=== PATIENT | female | born 1970 | race African-American/Black ===

== ENCOUNTER 2018-10-25 06:19 | Emergency (ER) | payer MEDICAID, MEDICARE, OTHER ==
[~2018-10-25] VITALS: Ht 165.1 cm; Wt 79.9 kg
--- NOTE | 2018-10-25 06:21 | NUR ---
NIL X 1 WHEN CALLED FOR TRIAGE.
--- NOTE | 2018-10-25 06:45 | NUR ---
PT TO ROOM. PT HAS MULTIPLE COMPLAINTS. PT C/O HEADACHE FOR TWO DAYS 10/10 PAIN. PT ALSO C/O SHARP LEFT SIDED CHEST PAIN WHICH WOKE HER FROM HER SLEEP AT 0300 THIS MORNING. PT ALSO REPORTS NAUSEA AND EPIGASTRIC PAIN. PT A&OX4. PT S/O AT BEDSIDE.
[2018-10-25] MEDS ORDERED: ONDANSETRON 2MG/ML, 2ML IVPush ONE (07:00)
[2018-10-25] MEDS ORDERED: SODIUM CHLORIDE FLUSH 10ML SYR IVF ONE (07:00)
[2018-10-25] MEDS ORDERED: ASPIRIN 81 MG TABLET CHEW PO ONE (07:00)
[2018-10-25] MEDS ORDERED: MORPHINE SULFATE 4 MG/ML, 1ML IVPush PRN (07:00)
--- NOTE | 2018-10-25 07:00 | NUR ---
REPORT GIVEN TO VERONIKA BURDEN
[2018-10-25] MEDS ORDERED: AMLO10TA8 PO (07:03)
[2018-10-25] MEDS ORDERED: LISI-170 PO (07:03)
[2018-10-25] MEDS ORDERED: MORPHINE SULFATE 4 MG/ML, 1ML ONE (07:03)
[2018-10-25] MEDS ORDERED: HYDR25TA6 PO (07:03)
[2018-10-25] MEDS ORDERED: ASPIRIN 81 MG TABLET CHEW ONE (07:03)
[2018-10-25] MEDS ORDERED: ONDANSETRON 2MG/ML, 2ML ONE (07:03)
[2018-10-25] MEDS ORDERED: VERA120T5 PO (07:03)
[2018-10-25] MEDS ORDERED: METO-290 PO (07:03)
[2018-10-25 07:20] LABS: MEAN CORPUSCULAR HEMOGLOBIN 30.9 pg (27.0-34.8); MEAN CORPUSCULAR HGB CONC 32.8 g/dL (32.4-35.8); MEAN CORPUSCULAR VOLUME 94.1 fL (80-100); MEAN PLATELET VOLUME 7.6 fL (7.4-10.4); PLATELET COUNT 365 x10^3/uL (130-400); RED BLOOD COUNT 4.51 x10^6/uL (3.82-5.3); RED CELL DISTRIBUTION WIDTH 16.3 % (9.6-15.2)
--- NOTE | 2018-10-25 07:26 | NUR ---
ASSUMED CARE OF PT. PT MEDICATED FOR PAIN AND NAUSEA. PT ON A CHEMICAL ENGINEER AND SERIAL VS. NAD.
[2018-10-25 07:33] LABS: ANION GAP 5 mmol/L (5-15); CALCIUM 8.9 mg/dL (8.5-10.1); CHLORIDE 106 mmol/L (98-107); CREATININE 0.95 mg/dL (0.55-1.02)
[2018-10-25 07:38] LABS: TROPONIN I < 0.015 ng/mL (0.000-0.045)
[2018-10-25 07:44] LABS: BASOPHILS # (AUTO) 0.03 x10^3/uL (0-0.1); BASOPHILS % (AUTO) 0 % (0-1); EOSINOPHILS # (AUTO) 0.02 x10^3/uL (0-0.4); EOSINOPHILS % (AUTO) 0 % (1-7); LYMPHOCYTES # (AUTO) 0.71 x10^3/uL (1-3.4); LYMPHOCYTES % (AUTO) 5 % (22-44); MD SCAN; MONOCYTES # (AUTO) 0.24 x10^3/uL (0.2-0.8); MONOCYTES % (AUTO) 2 % (2-9); NEUTROPHILS # (AUTO) 12.58 x10^3/uL (1.8-6.8); NEUTROPHILS % (AUTO) 93 % (42-75)
--- NOTE | 2018-10-25 08:16 | NUR ---
PT DENIES ANY NEEDS AT THIS TIME. SO AT BEDSIDE. PT AND SO WATCHING TV AND TALKING. NAD.
[2018-10-25] MEDS ORDERED: KETOROLAC 30 MG/1 ML ONE (08:23)
[2018-10-25] MEDS ORDERED: KETOROLAC 30 MG/1 ML IVPush ONE (08:30)
--- NOTE | 2018-10-25 08:33 | NUR ---
ROUNDED AGAIN, DISCUSSED POC WITH PT. URINE COLLECTED. PT DRINKING WATER.
--- NOTE | 2018-10-25 08:34 | NUR ---
PT MEDICATED FOR PAIN.
[2018-10-25 09:00] LABS: MICROSCOPIC INDICATED
--- NOTE | 2018-10-25 09:17 | NUR ---
Patient is resting comfortably in bed. Vital Signs within normal limits.
[2018-10-25] MEDS ORDERED: CEFTRIAXONE PMX 1GM/50ML 50 ML IV ONE (09:30)
--- NOTE | 2018-10-25 09:33 | NUR ---
PT OUT OF ROOM FOR IMAGING.
[2018-10-25] MEDS ORDERED: CEFTRIAXONE PMX 1GM/50ML 50 ML ONE (09:43)
[2018-10-25 09:58] VITALS: BP 167/112
--- NOTE | 2018-10-25 09:59 | NUR ---
PT STATES SHE STILL HAS PAIN. NOTIFIED. PHYLLIS BERNAL. VSS.
[2018-10-25] MEDS ORDERED: HYDROcodone/APAP 5/325 TABLET ONE (10:18)
[2018-10-25] MEDS ORDERED: HYDROcodone/APAP 5/325 TABLET PO ONE (10:30)
--- NOTE | 2018-10-25 10:58 | NUR ---
PT DISCHARGED WITH DISCHARGE INSTRUCTIONS AND FOLLOW UP INSTRUCTIONS. PT GIVEN RX. INSTRUCTIONS.
== END 2018-10-25 11:00 | disposition home or self-care (01) ==
LOC: ED 08:44
DX: N30.00 Acute cystitis without hematuria (principal); R07.89 Other chest pain; I25.2 Old myocardial infarction; I10 Essential (primary) hypertension; G43.909 Migraine, unspecified, not intractable, without status migrainosus; F41.1 Generalized anxiety disorder; Z86.73 Personal history of transient ischemic attack (TIA), and cerebral infarction without residual deficits; Z88.0 Allergy status to penicillin
CPT/HCPCS: 36415; 71045; 74176; 80048; 81001; 82040; 83880; 84484; 84703; 85025; 85379; 93005; 96365; 96375; 99284; J0696; J1885; J2270; J2405

== ENCOUNTER 2019-03-29 09:26 | Inpatient (IN) | payer MEDICARE, OTHER ==
[~2019-03-29] VITALS: Ht 165.1 cm; Wt 73.8 kg
[~2019-03-29 09:26] MED LIST: AMLO10TA8 PO; ATOR40TA78 PO; HYDR25TA6 PO; LISI-170 PO; METO-290 PO; VERA120T5 PO
[2019-03-29] MEDS ORDERED: DIAZEPAM 5 MG TABLET ONE (09:54)
[2019-03-29] MEDS ORDERED: KETOROLAC 30 MG/1 ML ONE (09:55)
[2019-03-29] MEDS ORDERED: KETOROLAC 30 MG/1 ML IM ONE (10:00)
[2019-03-29] MEDS ORDERED: CYCLOBENZAPRINE 10 MG TABLET PO ONE (10:00)
[2019-03-29] MEDS ORDERED: DIAZEPAM 5 MG TABLET PO ONE (10:00)
--- NOTE | 2019-03-29 11:03 | NUR ---
PT IS RESTING ON HOSPITAL BED. BEDSIDE. AWAITING LAB RESULTS. NO REQUESTS AT THIS TIME
[2019-03-29 11:26] LABS: ALBUMIN 3.4 g/dL (3.4-5.0); ANION GAP 7 mmol/L (5-15); CALCIUM 8.7 mg/dL (8.5-10.1); CHLORIDE 107 mmol/L (98-107)
[2019-03-29 11:31] LABS: MEAN CORPUSCULAR HEMOGLOBIN 29.4 pg (27.0-34.8); MEAN CORPUSCULAR HGB CONC 32.6 g/dL (32.4-35.8); MEAN CORPUSCULAR VOLUME 90.3 fL (80-100); MEAN PLATELET VOLUME 8.3 fL (7.4-10.4); PLATELET COUNT 261 x10^3/uL (130-400); RED CELL DISTRIBUTION WIDTH 18.5 % (9.6-15.2)
[2019-03-29 11:32] LABS: CREATININE 0.86 mg/dL (0.55-1.02)
[2019-03-29 11:33] LABS: ALANINE AMINOTRANSFERASE 32 U/L (12-78); ALKALINE PHOSPHATASE 69 U/L (45-117); BILIRUBIN,TOTAL 0.4 mg/dL (0.2-1.0); TOTAL PROTEIN 7.4 g/dL (6.4-8.2); TROPONIN I < 0.015 ng/mL (0.000-0.045)
--- NOTE | 2019-03-29 12:05 | NUR ---
PT REQUESTED BLANKET. WARM BLANKET PRIVDED WITH BLANKET WARMER
[2019-03-29 12:22] LABS: BASOPHILS # (AUTO) 0.01 x10^3/uL (0-0.1); BASOPHILS % (AUTO) 0 % (0-1); EOSINOPHILS # (AUTO) 0.02 x10^3/uL (0-0.4); EOSINOPHILS % (AUTO) 0 % (1-7); LYMPHOCYTES # (AUTO) 0.66 x10^3/uL (1-3.4); LYMPHOCYTES % (AUTO) 4 % (22-44); MD SCAN; MONOCYTES # (AUTO) 0.32 x10^3/uL (0.2-0.8); MONOCYTES % (AUTO) 2 % (2-9); NEUTROPHILS # (AUTO) 14.45 x10^3/uL (1.8-6.8); NEUTROPHILS % (AUTO) 94 % (42-75)
[2019-03-29 12:47] LABS: MICROSCOPIC NOT IND
[2019-03-29 12:55] LABS: CULTURE INDICATED? NO
--- NOTE | 2019-03-29 13:00 | NUR ---
LATE ENTRY: ATTMEPTING TO GET A IV FOR THE CT SCAN. BITUMASTIC APPLIER AND DELIVERY SALES WORKER NOTIFIED. IV INSERT ATTEMPT WITH ULTRASOUND MACHINE FAILED. MD NOTIFIED AND VQ SCAN ORDERED.
--- NOTE | 2019-03-29 13:30 | NUR ---
VQ HAS BEEN CANCELLED. A SUCCUSSEFUL IV WAS INSERTED AND WILL BE USED FOR CTA SCAN.
--- NOTE | 2019-03-29 14:18 | NUR ---
MANUAL BP READING OF 204/124. NOTIFIED. Addendum: 03/29/19 at 1840 by CRISTOBAL SEE SHERMAN FOR INTERVENTIONS
[2019-03-29] MEDS ORDERED: hydrALAzine 20 MG/ML, 1ML IV ONE (14:30)
[2019-03-29] MEDS ORDERED: hydrALAzine 20 MG/ML, 1ML ONE (14:33)
[2019-03-29] MEDS ORDERED: MORPHINE SULFATE 4 MG/ML, 1ML ONE ×2 (15:42→18:45)
[2019-03-29] MEDS: MORPHINE SULFATE 4 MG/ML, 1ML IVPush PRN ×3 (15:46→23:48)
--- NOTE | 2019-03-29 15:49 | NUR ---
PATIENT AWAITING CTA
[2019-03-29] MEDS ORDERED: ACETAMINOPHEN 500 MG TABLET PO ONE (16:00)
--- NOTE | 2019-03-29 16:34 | NUR ---
PT IS WILLING TO GO TO MRI NOW. REPORTS LITTLE PAIN IMPROVEMENT
[2019-03-29] MEDS ORDERED: GADOTERATE 10 MMOL/20 ML SYR ONE (17:37)
[2019-03-29] MEDS ORDERED: ACETAMINOPHEN 500 MG TABLET ONE (18:27)
[2019-03-29] MEDS: NICOTINE 14MG/24 HR PATCH.TD24 TD SCH (18:30)
[2019-03-29] MEDS ORDERED: POLYETHYLENE GLYCOL 17 GM PACKET PO PRN (18:30)
--- NOTE | 2019-03-29 18:39 | NUR ---
PT REFUSED TYLENOL. SAYS HER LIVER IS "DAMAGED FROM TYLENOL AND CANT TAKE IT"
[2019-03-29] MEDS ORDERED: ENOXAPARIN 40 MG/0.4 ML ONE (18:44)
[2019-03-29] MEDS ORDERED: NICOTINE 14MG/24 HR PATCH.TD24 ONE (18:45)
[2019-03-29] MEDS: ENOXAPARIN 40 MG/0.4 ML SQ SCH (18:49)
--- NOTE | 2019-03-29 18:59 | NUR ---
REPORT RECEIVED FROM PITO RN.
--- NOTE | 2019-03-29 19:06 | NUR ---
PT RESTING ON GURNEY WITH FAMILY AT FOR SUPPORT. HOSPITAL BED ORDERED FOR PT. PT RESTIN G WITH EYES CLOSED. CALL LIGHT WITHIN REACH. PT CONNECTED TO ALL MONITORING, BED IN LOW POSITION WITH X2 RAILS RAISED. ROOM DARKENED FOR PT COMFORT. ALL NEEDS MET AT THIS TIME.
[2019-03-29] MEDS ORDERED: POTASSIUM CHLORIDE 40 MEQ in SODIUM CHLORIDE 0.9% 500 ML IV ONE (19:30)
--- NOTE | 2019-03-29 20:09 | NUR ---
PT RESTING ON GURNEY WITH EYES CLOSED, FAMILY AT FOR SUPPORT. PT PROVIDED WATER.
--- NOTE | 2019-03-29 20:13 | NUR ---
PT PLACED ON 2L NC WHILE SLEEPING TO MAINTAIN O2 SAT ABOVE 92%
--- NOTE | 2019-03-29 20:48 | NUR ---
need new iv for CTA. pt refusing at the moment.
[2019-03-29 21:00] VITALS: BP_SYST 184; BP_SYST 188; BP_DIAS 101; BP_DIAS 127
--- NOTE | 2019-03-29 21:12 | NUR ---
REPORT GIVEN TO VERONIKA PETERSON.
[2019-03-29 21:51] LABS: AMPHETAMINE SCREEN, URINE Negative (Negative); BARBITURATE SCREEN, URINE Negative (Negative); BENZODIAZEPINE SCREEN, URINE Negative (Negative); CANNABINOID SCREEN, URINE Positive (Negative); COCAINE SCREEN, URINE Negative (Negative); METHADONE SCREEN, URINE Negative (Negative); OPIATE SCREEN, URINE Negative (Negative)
[2019-03-29 22:58] VITALS: BP 174/132
[2019-03-29 23:00] VITALS: BP 187/114
[2019-03-29] MEDS ORDERED: NITROGLYCERIN 0.4 MG/SPRAY SL PRN (23:30)
[2019-03-29] MEDS: ATORVASTATIN 40 MG TABLET PO SCH (23:49)
[2019-03-30] VITALS (7 sets, daily range): BP systolic 117–184; BP diastolic 83–143
[2019-03-30] MEDS: hydrALAzine 20 MG/ML, 1ML IVPush PRN ×2 (01:11→08:30)
[2019-03-30] MEDS: ACETAMINOPHEN 325 MG TABLET PO PRN (01:11)
[2019-03-30] MEDS: TEMAZEPAM 15 MG CAPSULE PO PRN ×2 (01:42→20:22)
[2019-03-30] MEDS: NITROGLYCERIN 0.4 MG BOTTLE (25 TABS) SL PRN ×2 (01:43→01:51)
[2019-03-30] MEDS ORDERED: VERAPAMIL 40MG TABLET ONE (08:19)
[2019-03-30] MEDS: LISINOPRIL 20 MG TABLET PO SCH (08:31)
[2019-03-30] MEDS: VERAPAMIL 120MG TABLET PO SCH (08:31)
[2019-03-30] MEDS: DEXAMETHASONE 4 MG/ML, 1ML IVPush SCH ×3 (08:31→19:52)
[2019-03-30] MEDS ORDERED: METOPROLOL SUCCINATE 100 MG TAB.ER.24H PO SCH (09:00)
[2019-03-30 09:23] LABS: ALANINE AMINOTRANSFERASE 27 U/L (12-78); ANION GAP 5 mmol/L (5-15); CALCIUM 8.8 mg/dL (8.5-10.1); CHLORIDE 107 mmol/L (98-107); CREATININE 0.97 mg/dL (0.55-1.02)
[2019-03-30 09:24] LABS: MEAN CORPUSCULAR HEMOGLOBIN 29.7 pg (27.0-34.8); MEAN CORPUSCULAR HGB CONC 32.9 g/dL (32.4-35.8); MEAN CORPUSCULAR VOLUME 90.4 fL (80-100); MEAN PLATELET VOLUME 7.8 fL (7.4-10.4); PLATELET COUNT 225 x10^3/uL (130-400); RED BLOOD COUNT 4.86 x10^6/uL (3.82-5.3); RED CELL DISTRIBUTION WIDTH 18.9 % (9.6-15.2)
[2019-03-30 09:25] LABS: ALKALINE PHOSPHATASE 77 U/L (45-117); BILIRUBIN,TOTAL 0.6 mg/dL (0.2-1.0); TOTAL PROTEIN 7.2 g/dL (6.4-8.2)
[2019-03-30 09:42] LABS: TROPONIN I < 0.015 ng/mL (0.000-0.045)
[2019-03-30 09:52] LABS: MD YES
[2019-03-30 09:54] LABS: BANDS%(MANUAL) 14 % (0-7); LYMPHS% (MANUAL) 6 % (22-44); MONOS% (MANUAL) 1 % (2-9); SEGS% (MANUAL) 79 % (42-75)
[2019-03-30 09:55] LABS: <PLATELET ESTIMATE> ADEQUATE; <PLT MORPHOLOGY> NORMAL PLT MORPH; <RBC MORPHOLOGY> NORMAL
[2019-03-30] MEDS ORDERED: OMNIPAQUE 350 MG/ML, 100ML BOTTLE ONE (10:52)
[2019-03-30] MEDS: METHOCARBAMOL 500 MG TABLET PO SCH ×2 (14:03→19:52)
[2019-03-30] MEDS: KETOROLAC 30 MG/1 ML IVPush SCH ×2 (14:03→19:52)
[2019-03-30] MEDS: ONDANSETRON 2MG/ML, 2ML IVPush PRN ×2 (14:07→20:21)
[2019-03-30] MEDS: ENOXAPARIN 40 MG/0.4 ML SQ SCH (17:58)
[2019-03-30] MEDS: NICOTINE 14MG/24 HR PATCH.TD24 TD SCH (17:59)
[2019-03-30] MEDS: ATORVASTATIN 40 MG TABLET PO SCH (19:52)
[2019-03-31] MEDS: DEXAMETHASONE 4 MG/ML, 1ML IVPush SCH ×4 (01:29→20:29)
[2019-03-31] MEDS: KETOROLAC 30 MG/1 ML IVPush SCH ×4 (01:29→20:30)
[2019-03-31 01:50] VITALS: BP 110/84
[2019-03-31] MEDS: ONDANSETRON 2MG/ML, 2ML IVPush PRN (05:54)
[2019-03-31] MEDS: METHOCARBAMOL 500 MG TABLET PO SCH ×4 (05:54→20:29)
[2019-03-31] MEDS ORDERED: VERAPAMIL 40MG TABLET ONE (08:55)
[2019-03-31] MEDS: METOPROLOL SUCCINATE 100 MG TAB.ER.24H PO SCH (09:03)
[2019-03-31] MEDS: LISINOPRIL 20 MG TABLET PO SCH (09:04)
[2019-03-31] MEDS: VERAPAMIL 120MG TABLET PO SCH (09:17)
[2019-03-31 09:23] VITALS: BP 126/93
[2019-03-31 14:55] VITALS: BP 108/77
[2019-03-31] MEDS: ENOXAPARIN 40 MG/0.4 ML SQ SCH (16:23)
[2019-03-31] MEDS: ACETAMINOPHEN 325 MG TABLET PO PRN (18:51)
[2019-03-31 18:54] VITALS: BP 111/82
[2019-03-31] MEDS: NICOTINE 14MG/24 HR PATCH.TD24 TD SCH (20:00)
[2019-03-31] MEDS: ATORVASTATIN 40 MG TABLET PO SCH (20:29)
[2019-03-31] MEDS: AZITHROMYCIN 500 MG in SODIUM CHLORIDE 0.9% 250 ML IV SCH (21:51)
[2019-03-31] MEDS: CEFTRIAXONE PMX 2GM/50ML 50 ML IV SCH (21:51)
[2019-04-01] MEDS: DEXAMETHASONE 4 MG/ML, 1ML IVPush SCH ×4 (02:12→20:41)
[2019-04-01] MEDS: KETOROLAC 30 MG/1 ML IVPush SCH ×4 (02:13→20:56)
[2019-04-01 02:30] VITALS: BP 132/93
[2019-04-01] MEDS: HYDROcodone/APAP 10/325 MG TABLET PO PRN ×3 (04:34→23:27)
[2019-04-01] MEDS: METHOCARBAMOL 500 MG TABLET PO SCH ×4 (06:53→22:38)
[2019-04-01 07:19] VITALS: BP 131/89
[2019-04-01] MEDS: VERAPAMIL 120MG TABLET PO SCH (08:14)
[2019-04-01] MEDS: ONDANSETRON 2MG/ML, 2ML IVPush PRN (08:22)
[2019-04-01] MEDS: LISINOPRIL 20 MG TABLET PO SCH (11:23)
[2019-04-01 12:38] VITALS: BP 106/74
[2019-04-01 13:14] VITALS: BP 110/79
[2019-04-01] MEDS: NICOTINE 14MG/24 HR PATCH.TD24 TD SCH (18:02)
[2019-04-01] MEDS: ENOXAPARIN 40 MG/0.4 ML SQ SCH (18:05)
[2019-04-01] MEDS: AZITHROMYCIN 500 MG in SODIUM CHLORIDE 0.9% 250 ML IV SCH (18:05)
[2019-04-01] MEDS: CEFTRIAXONE PMX 2GM/50ML 50 ML IV SCH (18:06)
[2019-04-01 18:07] VITALS: BP 119/82
[2019-04-01] MEDS: METOPROLOL SUCCINATE 100 MG TAB.ER.24H PO SCH (18:07)
[2019-04-01] MEDS: ATORVASTATIN 40 MG TABLET PO SCH (20:41)
[2019-04-01 21:42] VITALS: BP 123/87
[2019-04-02] MEDS: KETOROLAC 30 MG/1 ML IVPush SCH ×2 (02:47→08:43)
[2019-04-02] MEDS: DEXAMETHASONE 4 MG/ML, 1ML IVPush SCH ×3 (02:47→15:51)
[2019-04-02 02:51] VITALS: BP 115/75
[2019-04-02] MEDS: HYDROcodone/APAP 10/325 MG TABLET PO PRN ×3 (03:33→15:51)
[2019-04-02] MEDS: METHOCARBAMOL 500 MG TABLET PO SCH ×2 (05:47→11:08)
[2019-04-02 07:22] VITALS: BP 136/96
[2019-04-02] MEDS: LISINOPRIL 20 MG TABLET PO SCH (08:43)
[2019-04-02] MEDS: METOPROLOL SUCCINATE 100 MG TAB.ER.24H PO SCH (08:44)
[2019-04-02] MEDS: VERAPAMIL 120MG TABLET PO SCH (08:45)
[2019-04-02] MEDS ORDERED: CEFD300C37 PO (10:38)
[2019-04-02] MEDS ORDERED: POLY17PO5 PO (10:38)
[2019-04-02] MEDS ORDERED: METH500T7 PO (10:38)
[2019-04-02] MEDS ORDERED: KETO10TA PO (10:38)
[2019-04-02] MEDS ORDERED: NICO-486 TD (10:38)
[2019-04-02] MEDS ORDERED: DEXA4TAB PO (10:38)
[2019-04-02] MEDS ORDERED: HYDR-3240 PO (10:38)
[2019-04-02] MEDS ORDERED: ALUMINUM/MAG/SIMETHICONE 30 ML UDC PO PRN (11:00)
[2019-04-02 12:37] VITALS: BP 111/74
[2019-04-02] MEDS ORDERED: DOXY100T PO (14:10)
[2019-04-02 15:38] VITALS: BP 142/95
== END 2019-04-02 17:00 | disposition home or self-care (01) | DRG 551 ==
LOC: ED 13:18 → EDIP 14:32 → SUATTDRO 14:43 → 5SO 21:39 → 4NE 04-01 12:33 → DCLOUNGE 04-02 16:44
PROVIDERS: ADMIT Internal Medicine; ATTEND Internal Medicine
DX: M48.061 Spinal stenosis, lumbar region without neurogenic claudication (principal); J18.9 Pneumonia, unspecified organism; I42.1 Obstructive hypertrophic cardiomyopathy; M48.02 Spinal stenosis, cervical region; E78.5 Hyperlipidemia, unspecified; E87.6 Hypokalemia; E88.2 Lipomatosis, not elsewhere classified; F17.210 Nicotine dependence, cigarettes, uncomplicated; G43.909 Migraine, unspecified, not intractable, without status migrainosus; G89.29 Other chronic pain; I10 Essential (primary) hypertension; M54.9 Dorsalgia, unspecified; M40.50 Lordosis, unspecified, site unspecified; R07.9 Chest pain, unspecified; M47.816 Spondylosis without myelopathy or radiculopathy, lumbar region; M50.30 Other cervical disc degeneration, unspecified cervical region; M54.5 Low back pain; M51.36 Other intervertebral disc degeneration, lumbar region; Z59.0 Homelessness; Z63.8 Other specified problems related to primary support group; Z86.73 Personal history of transient ischemic attack (TIA), and cerebral infarction without residual deficits; Z95.5 Presence of coronary angioplasty implant and graft; Z88.0 Allergy status to penicillin; Z88.8 Allergy status to other drugs, medicaments and biological substances; Z79.899 Other long term (current) drug therapy
CPT/HCPCS: 36415; 71045; 71275; 72072; 72110; 72129; 72141; 72148; 80053; 80307; 81003; 83735; 84100; 84484; 84703; 85025; 85379; 87040; 87181; 93005; 96372; 99285; G0378; J0456; J0696; J1100; J1650; J1885; J2405; J3480; Q9967; A9575; J0360; J2270; J7040; J7050

== ENCOUNTER 2019-08-07 16:19 | Emergency (ER) | payer MEDICARE ==
[~2019-08-07] VITALS: Ht 165.1 cm; Wt 80.0 kg
[~2019-08-07 16:19] MED LIST changes: +CEFD300C37 PO; +DEXA4TAB PO; +DOCU100C33 PO; +DOXY100T PO; +HYDR-3240 PO; +HYDR-3342 PO; +KETO10TA PO; +LISI40TA PO; +METH500T7 PO; +METH750T2 PO; +NICO-486 TD; +OXYC10TA47 PO; +POLY17PO5 PO; +VERA120T13 PO; -VERA120T5 PO
[2019-08-07] MEDS ORDERED: OXYcodone IR 5MG TABLET PO ONE ×2 (17:30→19:30)
[2019-08-07] MEDS ORDERED: OXYcodone IR 5MG TABLET ONE ×2 (17:39→19:21)
[2019-08-07] MEDS ORDERED: VERAPAMIL ER 240MG TABLET.ER PO ONE (18:00)
[2019-08-07 18:28] LABS: TROPONIN I 0.049 ng/mL (0.000-0.045)
[2019-08-07 18:29] VITALS: BP 163/111
== END 2019-08-07 19:39 | disposition home or self-care (01) ==
LOC: ED 17:19
DX: G89.29 Other chronic pain (principal); M54.5 Low back pain; I10 Essential (primary) hypertension; R07.9 Chest pain, unspecified; G43.909 Migraine, unspecified, not intractable, without status migrainosus
CPT/HCPCS: 36415; 84484; 93005; 99284

== ENCOUNTER 2019-08-09 11:51 | Emergency (ER) | payer MEDICARE ==
[~2019-08-09] VITALS: Ht 165.1 cm; Wt 68.3 kg
[~2019-08-09 11:51] MED LIST changes: -CHLORHEXIDINE 15 ML UDC MM ONE; -LACTATED RINGERS 1,000 ML IV SCH
[2019-08-09] MEDS ORDERED: HYDROmorphone 1 MG/ML, 1ML INJ ONE ×2 (12:27→13:52)
[2019-08-09] MEDS ORDERED: ONDANSETRON 2MG/ML, 2ML ONE (12:28)
[2019-08-09] MEDS ORDERED: ONDANSETRON 2MG/ML, 2ML IVPush ONE (12:30)
[2019-08-09] MEDS ORDERED: SODIUM CHLORIDE FLUSH 10ML SYR IVF ONE (12:30)
[2019-08-09] MEDS: HYDROmorphone 2 MG/ML, 1ML IVPush PRN ×2 (12:49→13:55)
[2019-08-09 13:09] LABS: BASOPHILS # (AUTO) 0.14 x10^3/uL (0-0.1); BASOPHILS % (AUTO) 1 % (0-1); EOSINOPHILS # (AUTO) 0.04 x10^3/uL (0-0.4); EOSINOPHILS % (AUTO) 0 % (1-7); LYMPHOCYTES # (AUTO) 1.74 x10^3/uL (1-3.4); LYMPHOCYTES % (AUTO) 13 % (22-44); MD NO; MEAN CORPUSCULAR HGB CONC 31.9 g/dL (32.4-35.8); MEAN CORPUSCULAR VOLUME 84.8 fL (80-100); MEAN PLATELET VOLUME 7.9 fL (7.4-10.4); MONOCYTES # (AUTO) 0.52 x10^3/uL (0.2-0.8); MONOCYTES % (AUTO) 4 % (2-9); NEUTROPHILS # (AUTO) 11.49 x10^3/uL (1.8-6.8); NEUTROPHILS % (AUTO) 83 % (42-75); PLATELET COUNT 495 x10^3/uL (130-400); RED BLOOD COUNT 4.72 x10^6/uL (3.82-5.3); RED CELL DISTRIBUTION WIDTH 17.1 % (9.6-15.2)
[2019-08-09 13:17] LABS: ALBUMIN 3.8 g/dL (3.4-5.0); ANION GAP 5 mmol/L (5-15); CALCIUM 9.4 mg/dL (8.5-10.1); CHLORIDE 109 mmol/L (98-107); CREATININE 0.91 mg/dL (0.55-1.02)
[2019-08-09] MEDS ORDERED: LABETALOL 5MG/ML, 20ML IVPush ONE (13:30)
[2019-08-09] MEDS ORDERED: hydrALAzine 20 MG/ML, 1ML IV ONE (13:30)
[2019-08-09] MEDS ORDERED: VERAPAMIL 2.5 MG/ML, 2ML ONE (13:52)
--- NOTE | 2019-08-09 13:58 | NUR ---
Medicated as ordered. Pt resting in bed, call ligth in reach.
[2019-08-09] MEDS ORDERED: VERAPAMIL 2.5 MG/ML, 2ML IVPush ONE (14:00)
--- NOTE | 2019-08-09 14:50 | NUR ---
Farshad Gaspar at bedside
[2019-08-09] MEDS ORDERED: ENALAPRILAT 1.25 MG/ML, 1ML ONE (15:27)
[2019-08-09] MEDS ORDERED: PROMETHAZINE 25 MG/ML, 1ML ONE (15:27)
[2019-08-09] MEDS ORDERED: ENALAPRILAT 1.25 MG/ML, 2ML IV ONE (15:30)
[2019-08-09] MEDS ORDERED: PROMETHAZINE 25 MG/ML, 1ML IM ONE (15:30)
--- NOTE | 2019-08-09 15:53 | NUR ---
BREAK RN- MEDICATED ORDERED. [employer] TAR AND GRAVEL ROOFER NOTIFIED OF MISSING PHONE, OCCURANCE REPORT FILED.
[2019-08-09 16:37] VITALS: BP 159/98
== END 2019-08-09 16:39 | disposition home or self-care (01) ==
LOC: ED 13:14
DX: M51.26 Other intervertebral disc displacement, lumbar region (principal); M54.16 Radiculopathy, lumbar region; I10 Essential (primary) hypertension; R07.9 Chest pain, unspecified; I25.2 Old myocardial infarction; Z86.73 Personal history of transient ischemic attack (TIA), and cerebral infarction without residual deficits; Z87.891 Personal history of nicotine dependence
CPT/HCPCS: 36415; 71045; 80048; 82040; 84484; 85025; 96372; 96374; 96375; 96376; 99285; J1170; J2405; J2550

== ENCOUNTER → 2019-08-09 | Outpatient (CLI) | payer MEDICARE ==
[2019-08-07 15:54] LABS: BASOPHILS # (AUTO) 0.02 x10^3/uL (0-0.1); BASOPHILS % (AUTO) 0 % (0-1); EOSINOPHILS # (AUTO) 0.08 x10^3/uL (0-0.4); EOSINOPHILS % (AUTO) 1 % (1-7); LYMPHOCYTES # (AUTO) 1.81 x10^3/uL (1-3.4); LYMPHOCYTES % (AUTO) 13 % (22-44); MD NO; MEAN CORPUSCULAR HEMOGLOBIN 27.3 pg (27.0-34.8); MEAN CORPUSCULAR HGB CONC 32.4 g/dL (32.4-35.8); MEAN CORPUSCULAR VOLUME 84.4 fL (80-100); MEAN PLATELET VOLUME 8.2 fL (7.4-10.4); MONOCYTES # (AUTO) 0.54 x10^3/uL (0.2-0.8); MONOCYTES % (AUTO) 4 % (2-9); NEUTROPHILS # (AUTO) 11.66 x10^3/uL (1.8-6.8); NEUTROPHILS % (AUTO) 83 % (42-75); PLATELET COUNT 461 x10^3/uL (130-400); RED BLOOD COUNT 4.51 x10^6/uL (3.82-5.3); RED CELL DISTRIBUTION WIDTH 17.2 % (9.6-15.2)
[2019-08-07 15:57] LABS: ALANINE AMINOTRANSFERASE 18 U/L (12-78); ALBUMIN 3.3 g/dL (3.4-5.0); ANION GAP 5 mmol/L (5-15); CALCIUM 8.9 mg/dL (8.5-10.1); CHLORIDE 106 mmol/L (98-107); CREATININE 0.91 mg/dL (0.55-1.02)
[2019-08-07 16:00] LABS: ALKALINE PHOSPHATASE 100 U/L (45-117); BILIRUBIN,TOTAL 0.1 mg/dL (0.2-1.0)
[2019-08-07 16:30] LABS: INTERNATIONAL NORMALIZED RATIO 0.92 (0.93-1.1); PROTHROMBIN TIME 9.7 Seconds (9.6-11.5)
[~2019-08-09] VITALS: Ht 165.1 cm; Wt 63.6 kg
[~2019-08-09] MED LIST changes: +CHLORHEXIDINE 15 ML UDC MM ONE; +LACTATED RINGERS 1,000 ML IV SCH
== END | disposition home or self-care (01) ==
LOC: OUT 07:34 → EDSTATUS 10:00 → OUT 11:45
PROVIDERS: ATTEND Neurological Surgery
DX: M51.16 Intervertebral disc disorders with radiculopathy, lumbar region (principal); Z53.8 Procedure and treatment not carried out for other reasons; M48.061 Spinal stenosis, lumbar region without neurogenic claudication; M50.00 Cervical disc disorder with myelopathy, unspecified cervical region; M50.10 Cervical disc disorder with radiculopathy, unspecified cervical region; E78.00 Pure hypercholesterolemia, unspecified; Z79.01 Long term (current) use of anticoagulants; Z79.891 Long term (current) use of opiate analgesic; Z79.899 Other long term (current) drug therapy; Z98.1 Arthrodesis status
CPT/HCPCS: 36415; 80053; 85025; 85610; 85730; 93005; U0001

== ENCOUNTER 2019-09-24 12:01 | Outpatient (CLI) | payer MEDICARE ==
[2019-09-30] MEDS ORDERED: METH750T87 PO (11:54)
[2019-09-30] MEDS ORDERED: BISA10SU54 PR (11:55)
[2019-09-30] MEDS ORDERED: HYDR-3246 PO (11:55)
[2019-09-30] MEDS ORDERED: METH4TAB2 PO (11:56)
== END 2019-09-24 23:59 | disposition home or self-care (01) ==
LOC: STAR 12:01
PROVIDERS: ATTEND Neurological Surgery
DX: Z01.818 Encounter for other preprocedural examination (principal); Z11.59 Encounter for screening for other viral diseases
CPT/HCPCS: 36415; 87635

== ENCOUNTER → 2019-12-14 | Outpatient (CLI) | payer MEDICARE ==
[~2019-12-14] MED LIST changes: +BISA10SU54 PR; +HYDR-3246 PO; +METH4TAB2 PO; +METH750T87 PO
== END | disposition home or self-care (01) ==
LOC: RAD 13:51
PROVIDERS: ATTEND Neurological Surgery
DX: M51.17 Intervertebral disc disorders with radiculopathy, lumbosacral region (principal); M41.86 Other forms of scoliosis, lumbar region; M25.78 Osteophyte, vertebrae; M48.07 Spinal stenosis, lumbosacral region; M51.26 Other intervertebral disc displacement, lumbar region
CPT/HCPCS: 72110

== ENCOUNTER 2020-03-04 17:35 | Observation (INO) | payer MEDICARE, MEDICAID ==
[~2020-03-04] VITALS: Ht 165.1 cm; Wt 70.0 kg
[~2020-03-04 17:35] MED LIST changes: +AMLO-211 PO; -AMLO10TA8 PO
--- NOTE | 2020-03-04 18:42 | NUR ---
PR INTERNSHIP: PT TO ROOM FROM LOBBY
[2020-03-04 18:53] LABS: BASOPHILS % (AUTO) 0 % (0-1); EOSINOPHILS % (AUTO) 1 % (1-7); LYMPHOCYTES % (AUTO) 17 % (22-44); MEAN CORPUSCULAR HEMOGLOBIN 25.9 pg (27.0-34.8); MEAN CORPUSCULAR HGB CONC 32.4 g/dL (32.4-35.8); MEAN PLATELET VOLUME 8.4 fL (7.4-10.4); MONOCYTES % (AUTO) 7 % (2-9); NEUTROPHILS % (AUTO) 76 % (42-75); PLATELET COUNT 382 x10^3/uL (130-400); RED BLOOD COUNT 4.66 x10^6/uL (3.82-5.3); RED CELL DISTRIBUTION WIDTH 19.3 % (9.6-15.2)
[2020-03-04 18:56] LABS: ALBUMIN 3.8 g/dL (3.4-5.0); ANION GAP 4 mmol/L (5-15); CALCIUM 8.8 mg/dL (8.5-10.1); CHLORIDE 107 mmol/L (98-107)
[2020-03-04 18:57] LABS: MD NO
[2020-03-04 19:01] LABS: CREATININE 0.94 mg/dL (0.55-1.02); TROPONIN I < 0.015 ng/mL (0.000-0.045)
[2020-03-04] MEDS ORDERED: POTASSIUM CHLORIDE 20 MEQ TAB.ER.PRT PO ONE ×2 (19:30→23:00)
[2020-03-04] MEDS ORDERED: POTASSIUM CHLORIDE 20 MEQ TAB.ER.PRT ONE (19:44)
[2020-03-04] MEDS ORDERED: LABETALOL 5MG/ML, 20ML IVPush ONE (19:46)
[2020-03-04] MEDS ORDERED: LABETALOL 5MG/ML, 20ML ONE (19:48)
[2020-03-04] MEDS ORDERED: MORPHINE SULFATE 4 MG/ML, 1ML ONE ×2 (19:48→21:01)
[2020-03-04] MEDS ORDERED: ONDANSETRON 2MG/ML, 2ML ONE (19:48)
[2020-03-04] MEDS ORDERED: ONDANSETRON 2MG/ML, 2ML IVPush ONE (20:00)
[2020-03-04] MEDS: HYDROmorphone 2 MG/ML, 1ML IVPush PRN (20:19)
[2020-03-04] MEDS: MORPHINE SULFATE 4 MG/ML, 1ML IVPush PRN ×2 (20:28→21:06)
--- NOTE | 2020-03-04 20:32 | NUR ---
REPEAT EKG DONE
[2020-03-04] MEDS ORDERED: ASPIRIN 325 MG TABLET PO ONE (21:00)
--- NOTE | 2020-03-04 21:15 | NUR ---
REPORT FROM MCKINLEY ISSA CARE OF PT
[2020-03-04] MEDS ORDERED: DILTIAZEM 5 MG/ML, 5ML IVPush ONE (21:30)
[2020-03-04] MEDS ORDERED: HEPARIN 5,000 UNITS/ML, 1ML IV ONE ×2 (21:30→22:30)
[2020-03-04] MEDS ORDERED: HEPARIN 25,000 UNITS/250ML PMX 250 ML IV PRN ×2 (21:30→22:30)
[2020-03-04] MEDS ORDERED: ASPIRIN 325 MG TABLET ONE (21:37)
[2020-03-04] MEDS ORDERED: HEPARIN 25,000 UNITS/250ML PMX 250 ML ONE (21:37)
[2020-03-04] MEDS ORDERED: HEPARIN 5,000 UNITS/ML, 1ML ONE (21:37)
[2020-03-04] MEDS ORDERED: DILTIAZEM 5 MG/ML, 5ML ONE (21:38)
[2020-03-04 21:57] LABS: TROPONIN I < 0.015 ng/mL (0.000-0.045)
[2020-03-04] MEDS ORDERED: ONDANSETRON 2MG/ML, 2ML IVPush PRN (22:00)
[2020-03-04] MEDS ORDERED: DOCUSATE 100 MG CAPSULE PO PRN (22:00)
[2020-03-04] MEDS ORDERED: morphine SULFATE 10 MG/ML, 1ML IV PRN (22:00)
[2020-03-04] MEDS ORDERED: ENALAPRILAT 1.25 MG/ML, 2ML IVPush PRN (22:00)
[2020-03-04] MEDS ORDERED: ACETAMINOPHEN 325 MG TABLET PO PRN (22:00)
[2020-03-04] MEDS ORDERED: LABETALOL 5MG/ML, 20ML IVPush PRN (22:00)
[2020-03-04] MEDS ORDERED: hydrALAzine 20 MG/ML, 1ML IVPush PRN (22:00)
[2020-03-04] MEDS ORDERED: LISINOPRIL 40 MG TABLET PO SCH (22:00)
[2020-03-04] MEDS ORDERED: NITROGLYCERIN 0.4 MG BOTTLE (25 TABS) SL PRN (22:00)
--- NOTE | 2020-03-04 22:00 | NUR ---
DID NOT GIVE PO MED GAVE CARDIAZM 25 MG IVP AT THIS TIME
[2020-03-04] MEDS ORDERED: HEPARIN 5,000 UNITS/ML, 1ML IV PRN (22:30)
--- NOTE | 2020-03-04 22:31 | NUR ---
PIV PLACED IN LEFT HAND MEDS GIVEN ORDERED
--- NOTE | 2020-03-04 23:09 | NUR ---
PT UP TO BR IN NAD, RETURNED TO [facility] AND PLACED BACK ON ALL MONITORS
[2020-03-05] MEDS ORDERED: HYDROmorphone 1 MG/ML, 1ML INJ ONE ×2 (02:16→07:35)
[2020-03-05] MEDS: HYDROmorphone 2 MG/ML, 1ML IVPush PRN ×2 (02:18→07:46)
--- NOTE | 2020-03-05 03:00 | NUR ---
pt moved to hospital bed for comfort as pt a hold in er
[2020-03-05 03:38] LABS: BASOPHILS % (AUTO) 1 % (0-1); EOSINOPHILS % (AUTO) 1 % (1-7); LYMPHOCYTES % (AUTO) 18 % (22-44); MEAN CORPUSCULAR HEMOGLOBIN 25.9 pg (27.0-34.8); MEAN CORPUSCULAR HGB CONC 32.1 g/dL (32.4-35.8); MONOCYTES % (AUTO) 7 % (2-9); NEUTROPHILS % (AUTO) 73 % (42-75); PLATELET COUNT 313 x10^3/uL (130-400); RED BLOOD COUNT 4.24 x10^6/uL (3.82-5.3); RED CELL DISTRIBUTION WIDTH 19.6 % (9.6-15.2)
[2020-03-05 03:40] LABS: MD NO
[2020-03-05 03:48] LABS: ANION GAP 5 mmol/L (5-15); CALCIUM 8.6 mg/dL (8.5-10.1); CHLORIDE 111 mmol/L (98-107); CHOLESTEROL, TOTAL 207 mg/dL (140-239); CREATININE 0.82 mg/dL (0.55-1.02)
[2020-03-05 03:52] LABS: CHOL/HDL RATIO 3.3; HDL CHOL % 30 % (28-40); HDL CHOLESTEROL (DIRECT) 62 mg/dL (40-60); LDL CHOLESTEROL,CALCULATED 126 mg/dL (54-169); TRIGLYCERIDES 94 mg/dL (50-200); TROPONIN I < 0.015 ng/mL (0.000-0.045); VLDL CHOLESTEROL 19 mg/dL (0-25)
[2020-03-05] MEDS ORDERED: ASPIRIN 325 MG TABLET EC PO SCH (06:00)
--- NOTE | 2020-03-05 08:44 | NUR ---
ECHO COMPLETED AT BEDSIDE, OK TECH IN NOW, PT GIVEN MEDICATION PER NUC MED TECH
[2020-03-05] MEDS ORDERED: REGADENOSON 0.4 MG/5 ML SYRINGE ONE (08:50)
[2020-03-05] MEDS ORDERED: VERAPAMIL ER 240MG TABLET.ER PO SCH (09:00)
[2020-03-05] MEDS ORDERED: LOSARTAN 100 MG TAB PO SCH (09:30)
[2020-03-05] MEDS ORDERED: CHLORTHALIDONE 25 MG TABLET PO SCH (09:30)
[2020-03-05] MEDS ORDERED: ISOSORBIDE MONONITRATE ER 60 MG TABLET PO SCH (09:30)
[2020-03-05 09:35] LABS: TROPONIN I < 0.015 ng/mL (0.000-0.045)
--- NOTE | 2020-03-05 10:04 | NUR ---
PT TO NM AT THIS TIME, HEPARIN GTT INFUSING
--- NOTE | 2020-03-05 11:47 | NUR ---
PT BACK FROM ME, LAB CALLED TO [facility]
[2020-03-05] MEDS ORDERED: MORPHINE SULFATE 4 MG/ML, 1ML ONE (12:04)
--- NOTE | 2020-03-05 12:29 | NUR ---
TASK RN: ANTI Xa RESULTS BACK. NO CHANGE IN DRIP RATE REQUIRED AT THIS TIME
[2020-03-05 12:56] VITALS: BP 176/111
--- NOTE | 2020-03-05 13:06 | NUR ---
PROVIDER UPDATED ON RESULTS OF MANUELA, NOTIFIED OF HTN SINCE ARRIVAL LAST BP 107/110. PROVIDER TO DC PT WITH CARDS INPUT FOR CHANGES IN BP
[2020-03-05] MEDS ORDERED: LOSA100T2 PO (14:09)
[2020-03-05] MEDS ORDERED: HYDR-3343 PO (14:09)
[2020-03-05] MEDS ORDERED: CHLO25TA PO (14:09)
[2020-03-05] MEDS ORDERED: ATOR40TA78 PO (14:09)
[2020-03-05] MEDS ORDERED: ISOS60TA36 PO (14:09)
--- NOTE | 2020-03-05 14:24 | NUR ---
MATT VILLALBA NOTIFIED OF PT DISCHARGE, THEY ARE TO DO PAPERWORK
[2020-03-05] MEDS ORDERED: ATORVASTATIN 80 MG TABLET PO SCH (21:00)
== END 2020-03-05 15:39 | disposition home or self-care (01) ==
LOC: ORIP 21:30 → ED 21:30 → EDIP 22:41 → UNDOADMIN 22:41 → ED 03-05 13:59
PROVIDERS: ADMIT Family Medicine; ATTEND Physician Assistant Medical
DX: I42.2 Other hypertrophic cardiomyopathy (principal); I16.0 Hypertensive urgency; D72.829 Elevated white blood cell count, unspecified; E87.6 Hypokalemia; I10 Essential (primary) hypertension; R79.89 Other specified abnormal findings of blood chemistry; R51.9 Headache, unspecified; I25.2 Old myocardial infarction; Z87.891 Personal history of nicotine dependence; Z88.0 Allergy status to penicillin; Z79.899 Other long term (current) drug therapy; Z86.73 Personal history of transient ischemic attack (TIA), and cerebral infarction without residual deficits; Z95.5 Presence of coronary angioplasty implant and graft
CPT/HCPCS: 36415; 70450; 71045; 78452; 80048; 80061; 82040; 83735; 83880; 84443; 84484; 85025; 85520; 93005; 93017; 93306; 93356; 96365; 96366; 96375; 96376; 99291; A9502; G0378; J1170; J1644; J2270; J2405; J2785; 96361; 96374; 99285

== ENCOUNTER 2020-05-29 21:47 | Emergency (ER) | payer MEDICARE, MEDICAID ==
[~2020-05-29] VITALS: Ht 165.1 cm; Wt 59.5 kg
[~2020-05-29 21:47] MED LIST changes: +CHLO25TA PO; +HYDR-1067 PO; -HYDR-3240 PO; -HYDR-3246 PO; +HYDR-3248 PO; +HYDR-3343 PO; +ISOS60TA36 PO; -LISI40TA PO; +LISI40TA9 PO; +LOSA100T2 PO; +METH-639 PO; +METH-640 PO; -METH500T7 PO; -METH750T2 PO
[2020-05-29] MEDS ORDERED: ONDANSETRON 2MG/ML, 2ML ONE (22:23)
[2020-05-29] MEDS ORDERED: MORPHINE SULFATE 4 MG/ML, 1ML ONE ×2 (22:25→23:43)
[2020-05-29 22:29] LABS: BASOPHILS % (AUTO) 0 % (0-1); EOSINOPHILS % (AUTO) 1 % (1-7); LYMPHOCYTES % (AUTO) 12 % (22-44); MEAN CORPUSCULAR HGB CONC 32.3 g/dL (32.4-35.8); MEAN PLATELET VOLUME 7.9 fL (7.4-10.4); MONOCYTES % (AUTO) 4 % (2-9); NEUTROPHILS % (AUTO) 83 % (42-75); PLATELET COUNT 363 x10^3/uL (130-400); RED BLOOD COUNT 4.38 x10^6/uL (3.82-5.3); RED CELL DISTRIBUTION WIDTH 18.7 % (9.6-15.2)
[2020-05-29] MEDS ORDERED: ONDANSETRON 2MG/ML, 2ML IVPush ONE (22:30)
[2020-05-29 22:31] LABS: MD NO
[2020-05-29] MEDS: MORPHINE SULFATE 4 MG/ML, 1ML IVPush PRN ×2 (22:31→23:46)
--- NOTE | 2020-05-29 22:37 | NUR ---
Pt BIBA with c/o headache that started last night. Pt states taking 4-6 motrin PM, and 5 ASA over the last day. Pt also c/o CP. Pt with cardiac hx, HTN, and states not taking her meds for several weeks. Pt with hx of LA, HTN stroke and cardiomyopathy per EMS. Pt medicated per order. Pt to CT.
[2020-05-29 22:41] LABS: ALBUMIN 3.5 g/dL (3.4-5.0); ANION GAP 7 mmol/L (5-15); CALCIUM 8.8 mg/dL (8.5-10.1); CHLORIDE 109 mmol/L (98-107); CREATININE 1.21 mg/dL (0.55-1.02)
[2020-05-29 22:45] LABS: TROPONIN I < 0.015 ng/mL (0.000-0.045)
[2020-05-29] MEDS ORDERED: LISINOPRIL 20 MG TABLET ONE (23:29)
[2020-05-29] MEDS ORDERED: KETOROLAC 30 MG/1 ML ONE (23:29)
[2020-05-29] MEDS ORDERED: LABETALOL 5MG/ML, 20ML ONE (23:29)
[2020-05-29] MEDS ORDERED: LISINOPRIL 20 MG TABLET PO ONE (23:30)
[2020-05-29] MEDS ORDERED: LOSARTAN 25MG TABLET PO ONE (23:30)
[2020-05-29] MEDS ORDERED: LABETALOL 5MG/ML, 20ML IVPush ONE (23:30)
[2020-05-29] MEDS ORDERED: KETOROLAC 30 MG/1 ML IVPush ONE (23:30)
[2020-05-29] MEDS ORDERED: VERAPAMIL 40MG TABLET PO ONE (23:30)
--- NOTE | 2020-05-29 23:55 | NUR ---
Pt medicated per orders for pain and HTN. Pt remains A&O x 3. Continues to c/o CP. NSR on monitor with no ectopy. Will continue to monitor.
[2020-05-30] MEDS ORDERED: hydrALAzine 20 MG/ML, 1ML IV ONE (00:30)
--- NOTE | 2020-05-30 00:37 | NUR ---
Note hussain in EDM - 05/30/20 at 0224 by [email or web address] Pt medicated per order. Report to Jannie. Pt A&O, no sz activity. Pt ready for admit.
[2020-05-30] MEDS ORDERED: hydrALAzine 20 MG/ML, 1ML ONE (00:49)
[2020-05-30] MEDS ORDERED: MORPHINE SULFATE 4 MG/ML, 1ML ONE (02:09)
[2020-05-30] MEDS ORDERED: MORPHINE SULFATE 4 MG/ML, 1ML IVPush PRN (02:30)
[2020-05-30 02:32] VITALS: BP 166/99
--- NOTE | 2020-05-30 03:01 | NUR ---
Pt IV dc'd intact. Pt ambulated to BR without difficulty. Pt dc'd with written and verbal instructions. RX reviewed. Pt states she understands. Pt home with taxi. Addendum: 05/30/20 at 0302 by [email or web address] Pt states feeling better and ok to go home. Pt with improved BP. Pt denies any s/s.
== END 2020-05-30 03:03 | disposition home or self-care (01) ==
LOC: ED 23:57
DX: R07.89 Other chest pain (principal); I16.9 Hypertensive crisis, unspecified; R51.9 Headache, unspecified; I25.2 Old myocardial infarction; Z86.73 Personal history of transient ischemic attack (TIA), and cerebral infarction without residual deficits; F17.200 Nicotine dependence, unspecified, uncomplicated
CPT/HCPCS: 36415; 70450; 71045; 80048; 82040; 84484; 84703; 85025; 93005; 96374; 96375; 96376; 99285; J0360; J1885; J2270; J2405

== ENCOUNTER 2020-07-01 12:09 | Emergency (ER) | payer MEDICAID, MEDICARE ==
[~2020-07-01] VITALS: Ht 167.6 cm; Wt 67.6 kg
--- NOTE | 2020-07-01 12:54 | NUR ---
PT C/O OF RT KNEE PAIN X 3 WEEKS. KNEE BEGAN TO BECOME MORE SWOLLEN OVER LAST FEW DAYS AND PAIN BEGAN TO GET WORSE. CMS IN RIGHT TOES INTACT AND PT ABLE TO FLEX KNEE.
--- NOTE | 2020-07-01 12:57 | NUR ---
PT OUT OF ROOM IN IMAGING.
--- NOTE | 2020-07-01 13:00 | NUR ---
PT REPORTS NOT KNOWING WHY KNEE IS SWOLLEN AND THINKS IT MIGHT HAVE TO DO WITH HER HTN.
[2020-07-01] MEDS ORDERED: LISI20TA21 PO (13:15)
[2020-07-01 13:44] VITALS: BP 165/103
== END 2020-07-01 14:02 | disposition home or self-care (01) ==
LOC: ED 13:37
DX: M25.461 Effusion, right knee (principal); M79.89 Other specified soft tissue disorders; I25.2 Old myocardial infarction; I10 Essential (primary) hypertension; G43.909 Migraine, unspecified, not intractable, without status migrainosus; F17.210 Nicotine dependence, cigarettes, uncomplicated; Z86.73 Personal history of transient ischemic attack (TIA), and cerebral infarction without residual deficits
CPT/HCPCS: 99283